=== PATIENT | female | born 1995 | race Caucasian/White ===

== ENCOUNTER 2023-05-30 14:08 | Emergency (ER) | payer BC, MEDICAID ==
[~2023-05-30] VITALS: Ht 152.4 cm; Wt 86.2 kg
[2023-05-30 14:10] VITALS: BP 112/86; PULSE 78; RESP 18; TEMP 97.8; O2SAT 99
[2023-05-30] MEDS ORDERED: NIRM1TAB PO (15:13)
[2023-05-30] MEDS ORDERED: ACET-2619 PO (15:13)
== END 2023-05-30 18:26 | disposition home or self-care (01) ==
LOC: MED 14:08
DX: U07.1 COVID-19 (principal); Z88.8 Allergy status to other drugs, medicaments and biological substances; Z79.899 Other long term (current) drug therapy
CPT/HCPCS: 99283